=== PATIENT | female | born 1970 | race Caucasian/White ===

== ENCOUNTER → 2020-07-19 | Emergency (ER) | payer OTHER ==
[~2020-07-19] VITALS: Ht 167.6 cm; Wt 86.2 kg
[~2020-07-19] MED LIST: ACETAMINOPHEN-1 EAC1 PO; AMOXICILLIN875 MG PO; AUGMENTIN 875-1 EACH PO; BACTRIM DS TAB1 EACH; BACTRIM DS TAB1 EACH PO; BACTROBAN15 GM TP; BUTALB-APAP-CA1 EACH PO; CARAFATE 1 GM TA1 G1; CARAFATE 1 GM TA1 G1 PO; CEFDINIR PO; CIPRO250 MG PO; CIPRO500 MG; CLONAZEPAM PO; CYMBALTA60 MG PO; DESYREL150 MG PO; FIORICET 50-321 EACH PO; FLAGYL500 M1 PO; FLAGYL500 MG; FLAGYL500 MG PO; HYDROCODON-ACE1 EAC7; IBUPROFEN 800800 MG PO; KEFLEX500 MG; LEVAQUIN 500 M500 M2; MECLIZINE HCL25 M1 PO; METFORMIN HCL500 MG PO; NABUMETONE 750750 M1 PO; NORCO 5-325 TA1 EACH PO; ONDANSETRON HCL4 M2 PO; PAXIL10 MG PO; PERCOCET 5-3251 EACH PO; PHENERGAN; PHENERGAN 25 MG25 M1 PO; PHENERGAN12.5 M1 RECTAL; PHENERGAN25 MG; PREDNISONE 20 M20 MG PO; PROTONIX40 M2; PROTONIX40 M2 PO; REGLAN 10 MG TA10 MG PO; REGLAN 5 MG TAB5 M1; REGLAN 5 MG TAB5 M1 PO; REMERON15 MG PO; ULTRAM 50MG TAB50 MG PO; VALIUM5 MG PO; XANAX 0.5 MG0.5 M1 PO; XANAX 0.5 MG0.5 MG PO; ZOFRAN ODT4 MG PO; ZOFRAN4 MG; ZOFRAN4 MG PO; ZOLOFT50 M1 PO; ZPAK; ZPAK PO; [UNRECOGNIZED DRUG - OTHER]
[2020-07-19 13:01] LABS: CREATININE 0.5 mg/dL (0.6-1.0)
[2020-07-19 13:07] LABS: ALBUMIN 3.9 g/dL (3.4-5.0); TOTAL BILIRUBIN 0.6 mg/dL (0.2-1.0); TOTAL PROTEIN 7.9 g/dL (6.4-8.2)
[2020-07-19 13:10] LABS: HEMATOCRIT 38.5 % (37.0-47.0); HEMOGLOBIN 13.3 gm/dL (12.0-15.0); MCH 30.2 pg (26.0-34.0); MCHC 34.6 g/dL (28.0-37.0); MCV 87.2 fL (80.0-100.0); RBC 4.42 mil/uL (4.20-5.00); RDW 13.1 % (10.5-14.5); WBC 6.1 thou/uL (4.0-11.0)
[2020-07-19 13:13] LABS: POTASSIUM 4.3 mmol/L (3.5-5.1)
[2020-07-19 15:48] VITALS: BP 130/82
--- NOTE | 2020-07-21 16:06 | PATH ---
[facility] [address] [place] [address] PATHOLOGY RPT PROCEDURE Name: BRIGIDA BRUNEREMMY VELÁZQUEZ Room #: REG [facility]#: [id number] Admission: 07/19/20 Date of : 68 Discharge: Report #: [id number] Path Case #: [id number] [facility] Accession Number: [id number] . 01 Material submitted: . esophagus - BIOPSY OF DISTAL ESOPHAGUS TO R/O SAUL'S ESOPHAGUS. Modifiers: distal . 01 Clinical history: . FOREIGN BODY IN THROAT, DYSPHAGIA . 02 Diagnosis: Gastroesophageal mucosa, distal esophagus to rule out Saul's, endoscopic biopsy: - Specialized columnar epithelium (gastric cardia-type mucosa) with intestinal metaplasia, consistent with Saul's metaplasia. - Negative for dysplasia. - Mild chronic inflammation. LBQ 07/21/2020 1253 Local . 02 Comment: The above diagnosis of Saul's esophagus is made due to presence of intestinal metaplasia and with the assumption that the biopsies were obtained from the columnar mucosa in the distal esophagus located at least 1 cm proximal to the top of the gastric folds as per the 2016 ACG guidelines. (IUV/db; 07/21/2020) . 02 Electronically signed: . Larissa Purcell MD, Pathologist NPI- [id number] . 01 Gross description: . The specimen is received in formalin, labeled "Diana Bruner, biopsy of esophagus distal, R/O Saul's". Received are two segments of pale cooper soft tissue ranging in size from 0.3 to 0.6 cm in maximum dimensions. The specimen is submitted entirely in cassette A1. (CAA; 07/20/2020) QAC/QAC 07/20/2020 1632 Local . 02 Pathologist provided ICD-10: K20.9 . 02 CPT . 641569 Specimen Comment: A courtesy copy of this report has been sent to [phone], [phone] Specimen Comment: [address] [address] PATHOLOGY RPT PROCEDURE Name: DIANA BRUNER Room #: REG [facility]#: [id number] Admission: 07/19/20 Date of : 68 Discharge: Report #: [id number] Path Case #: [id number] Specimen Comment: Report sent to / DR GENAO Performed at: [address], [place], [place] [id number] MD Jalen Morataya MD Phone: [phone] Performed at: [address] [id number] MD Larissa Purcell MD Phone: [phone]
--- NOTE | 2020-07-22 12:53 | P ---
[facility] [place] [address] PROCEDURE REPORT Name: DIANA BLAIR Room #: REG [facility]#: [id number] Admission: 07/19/20 Attend Phys: Discharge: Date of : 68 Report #: [id number] THIS REPORT FOR: cc: Paty Joshi MD, Stacey L. MD McElhinney, Christian C. MD ~ CC: Jaun Joshi MD DATE OF SERVICE: 07/19/2020 PROCEDURE PERFORMED: Upper endoscopy with biopsies and esophageal dilation. HISTORY OF PRESENT ILLNESS: The patient is a 50-year-old female who presented to the Emergency Room with possible food impaction, was eating chicken enchiladas and then later a piece of toast feeling like it was stuck, drank some water and said it would not pass. She has had a previous upper endoscopy with dilation last year, reportedly that was helpful and had a hiatal hernia surgery in 2016. She denies any heartburn symptoms. She is not taking any antacids at this time. In the Emergency Room, she was able to swallow water without difficulty; however, the patient is still convinced she has possible impaction as she is feeling pressure in her esophagus still at this time. DESCRIPTION OF PROCEDURE: The risks and benefits of the procedure were explained to the patient, those risks including but not limited to bleeding, perforation, the risk of sedation. She understood these risks and gave informed consent. Sedation was given using propofol per anesthesia. Next, using a standard Olympus upper endoscope, the scope was placed in the patient's mouth and advanced under direct vision through the esophagus, stomach and into the second portion of the duodenum. The larynx was normal throughout. The upper and mid esophagus was normal. No evidence of food impaction. No evidence of inflammation. At the GE junction, a possible short segment of Hall's was noted. Biopsies were obtained. There was no evidence of stricture, no evidence of esophagitis. Overall, the gastric mucosa was normal. On retroflexion, surgical changes noted, previous hiatal hernia surgery. The antrum was normal. The pylorus was normal and patent. The duodenal bulb, first and second portion were all normal. The scope was then brought back up into the patient's stomach and a Savary guidewire was inserted through the scope, leaving the guidewire in place as the scope was then withdrawn. Next, a 51-Japanese Savary dilation was then performed without difficulty. The wire and dilator removed. The scope was reintroduced into the patient's stomach. There was no evidence of mucosal tear after dilation. The scope was then withdrawn and the procedure terminated. The patient tolerated the procedure well. IMPRESSION: [facility] [address] [place] [address] PROCEDURE REPORT Name: DIANA BLAIR Room #: REG [facility]#: [id number] Admission: 07/19/20 Attend Phys: Discharge: Date of : 68 Report #: [id number] 1. No evidence of food impaction. 2. Possible short segment Hall's. 3. Otherwise, normal upper endoscopy. RECOMMENDATIONS: 1. Await biopsy results. 2. Observe the patient post-dilation. 3. If biopsies are positive for Hall's, would recommend daily PPI therapy. Thank you for allowing me to participate in her care. <ELECTRONICALLY SIGNED> By: Austin Zamarripa MD 07/22/20 1253 1637 51 Austin Zamarripa MD /nt
== END ==
LOC: ER 07:13
PROVIDERS: Nurse Practitioner
DX: T18.128A Food in esophagus causing other injury, initial encounter (principal); F45.8 Other somatoform disorders; K21.9 Gastro-esophageal reflux disease without esophagitis; E11.9 Type 2 diabetes mellitus without complications; G43.909 Migraine, unspecified, not intractable, without status migrainosus; Z20.828 Contact with and (suspected) exposure to other viral communicable diseases
CPT/HCPCS: 62110; 62900